=== PATIENT | female | born 1990 | race Caucasian/White ===

== ENCOUNTER 2018-10-09 12:04 | Emergency (ER) | payer MEDICAID ==
--- NOTE | 2018-10-09 12:46 | EDPHY ---
H & P Stated Complaint: Head inj/Laceration Time Seen by Provider: 10/09/18 12:30 HPI/ROS: CHIEF COMPLAINT: Scalp laceration HISTORY OF PRESENT ILLNESS: Patient is a 28-year-old female who comes to the emergency department complaining of a laceration to her left scalp. She was walking in a parking garage and hit her head on a low hanging stop sign. She was looking at her phone. She did not lose consciousness. She felt pain immediately. She does have a mild headache and nausea now. No vomiting. No neck pain. No other injuries. Focal weakness or deficits. Patient initially presented to an urgent care who recommended she come here. Severity: Moderate Modifying factors: None REVIEW OF SYSTEMS: Constitutional: denies: chills, fever, recent illness, recent injury EENTM: denies: blurred vision, double vision, nose congestion Respiratory: denies: cough, shortness of breath Cardiac: denies: chest pain, irregular heart rate, lightheadedness, palpitations Gastrointestinal/Abdominal: denies: abdominal pain, diarrhea, nausea, vomiting, blood streaked stools Genitourinary: denies: dysuria, frequency, hematuria, pain Musculoskeletal: denies: joint pain, muscle pain Skin: See HPI Neurological: See HPI Hematologic/Lymphatic: denies: blood clots, easy bleeding, easy bruising Immunologic/allergic: denies: HIV/AIDS, transplant 10 systems reviewed and negative except as noted EXAM: GENERAL: Well-appearing, well-nourished and in no acute distress. HEAD: 2 cm crescent-shaped laceration left frontal parietal region. No galea injury visible. No crepitus. No hematoma. No visible foreign body. EYES: Pupils equal round and reactive to light, extraocular movements intact, sclera anicteric, conjunctiva are normal. ENT: TMs normal, nares patent, oropharynx clear without exudates. Moist mucous membranes. NECK: Normal range of motion, supple without lymphadenopathy or JVD. LUNGS: Breath sounds clear to auscultation bilaterally and equal. No wheezes rales or rhonchi. HEART: Regular rate and rhythm without murmurs, rubs or gallops. ABDOMEN: Soft, nontender, normoactive bowel sounds. No guarding, no rebound. No masses appreciated. BACK: No CVA tenderness, no spinal tenderness, step-offs or deformities EXTREMITIES: Normal range of motion, no pitting or edema. No clubbing or cyanosis. NEUROLOGICAL: Cranial nerves II through XII grossly intact. Normal speech, normal gait. 5/5 strength, normal movement in all extremities, normal sensation , normal reflexes PSYCH: Normal mood, normal affect. SKIN: See above Source: Patient Exam Limitations: No limitations - Personal History LMP (Females 10-55): 8-14 Days Ago Current Tetanus/Diphtheria Vaccine: Unsure - Medical/Surgical History Hx Asthma: No Hx Chronic Respiratory Disease: No Hx Diabetes: No Hx Cardiac Disease: No Hx Renal Disease: No Hx Cirrhosis: No Hx Alcoholism: No Other PMH: ADHD, depression - Family History Significant Family History: No pertinent family hx - Social History Smoking Status: Never smoked Alcohol Use: None Constitutional: Initial Vital Signs Temperature (C) 36.4 C 10/09/18 12:06 Heart Rate 58 L 10/09/18 12:06 Respiratory Rate 18 10/09/18 12:06 Blood Pressure 127/88 H 10/09/18 12:06 O2 Sat (%) 99 10/09/18 12:06 O2 Delivery Mode Room Air Allergies/Adverse Reactions: drospirenone [From [facility]AN (28)] Allergy (Verified 10/09/18 12:10) ethinyl estradiol [From [facility] (28)] Allergy (Verified 10/09/18 12:10) hydrocodone Allergy (Verified 10/09/18 12:10) Home Medications: Medication Instructions Recorded ADDERALL 12.5 MG TABLET 10/09/18 Omeprazole 10/09/18 Medical Decision Making Procedures: Procedure: Laceration repair. Verbal consent was obtained from the patient. The 2 cm scalp laceration was anesthetized with 1% lidocaine with epi and bicarbonate locally infiltrated. The wound was irrigated copiously according to protocol, draped and explored to its base. It was approximately 1 cm deep. There were no deep structures involved. No tendon, nerve, or vascular injury was identified when explored. No foreign body was identified. The wound was repaired with 5 karen. The wound repair was simple without wound margin revisement or multiple flap alignment. The procedure was performed by myself. A dressing was then placed with sterile gauze and bacitracin. ED Course/Re-evaluation: Patient tolerated laceration repair. We discussed concussion and stepwise return to activity. I will provide her with a work note. We discussed staple care and removal. Differential Diagnosis: Partial list of the Differential diagnosis considered include but were not limited to; concussion, scalp laceration and although unlikely based on the history and physical exam, I also considered fracture, intracranial hemorrhage, neck injury. I discussed these differential diagnoses and the plan with the patient as well as the usual and expected course. The patient understands that the diagnosis is provisional and that in medicine we are not always correct and that further workup is often warranted. Usual and customary warnings were given. All of the patient's questions were answered. The patient was instructed to return to the emergency department should the symptoms at all worsen or return, otherwise to followup with the physician as we discussed. Departure - Departure Disposition: Home, Routine, Self-Care Clinical Impression: Scalp laceration, Concussion Condition: Good Instructions: Concussion (ED), Staple Care (ED) Additional Instructions: Return to the ER in 10 days for staple removal. Referrals: NONE *PRIMARY CARE P,. [Primary Care Provider] - As per Instructions Fern Urrutia MD [Medical Doctor] - 5-7 days, if not improved Stand Alone Forms: Work Excuse
[2018-10-09 15:03] VITALS: BP 113/83
== END 2018-10-09 14:20 | disposition home or self-care (01) ==
PROC: 0HQ0XZZ Repair Scalp Skin, External Approach (ICD-10-PCS; principal; 2018-10-09)
DX: S01.01XA Laceration without foreign body of scalp, initial encounter (principal); W22.8XXA Striking against or struck by other objects, initial encounter; Y92.481 Parking lot as the place of occurrence of the external cause; Y93.9 Activity, unspecified; Y99.9 Unspecified external cause status